=== PATIENT | female | born 2000 | race Caucasian/White ===

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

== ENCOUNTER 2024-06-23 17:04 | Emergency (ER) | payer MEDICAID, SELFPAY ==
[2024-06-23 17:05] VITALS: BP 116/85; PULSE 131; RESP 18; TEMP 36.1; O2SAT 97; BMI 24.0
[2024-06-23 17:43] VITALS: BP 115/86; PULSE 131; RESP 19; O2SAT 99
[2024-06-23 18:09] VITALS: BP 128/89; PULSE 122; RESP 19; O2SAT 99
--- NOTE | 2024-06-23 18:38 | MRI_ITS ---
STUDY: MRI BRAIN WITH AND WITHOUT CONTRAST REASON FOR EXAM: Female, 24 years old. Concern for brain mass with neurological deficit -- Sent by PCP for this TECHNIQUE: Standardized multiplanar fat and water weighted pulse sequences were obtained. IV 12CC CLARISCAN was administered for the contrast portion of the examination. COMPARISON: None. FINDINGS: Normal size of the ventricles and extra-axial spaces for the patient''s age. Normal white matter tracts of the supratentorial brain. Normal bilateral basal ganglia. Normal thalami. There is no extra-axial fluid accumulation. Normal flow voids within the major intracranial circulation suggesting patency by spin echo criteria. Normal venous enhancement. There is no enhancing intra-axial or extra-axial abnormality. Normal sella turcica, pituitary gland, infundibular stalk, optic chiasm and hypothalamus. Normal tectal plate and pineal gland. Normal midbrain, kolby and medulla. Normal cerebellum. Normal basal cisterns. Normal bilateral temporal bones. Normal bilateral internal auditory canals. No demonstrated orbital abnormality, within the constraints of a routine brain study. Normal visualized paranasal sinuses. Normal calvarium and skull base. Normal visualized soft tissue structures. Normal visualized upper cervical spine. MRI/Brain W/WO Contrast IMPRESSION: Normal unenhanced and enhanced MRI of the brain. Electronically Signed: Bharat Mo MD at 22:59 EDT ,
--- NOTE | 2024-06-23 18:43 | MRI_ITS ---
STUDY: MRI LUMBAR SPINE WITH AND WITHOUT CONTRAST REASON FOR EXAM: Female, 24 years old. weakness, decreased DTR, back pain TECHNIQUE: Standardized fat and water weighted pulse sequences were obtained in the sagittal and axial planes. IV 12CC CLARISCAN was administered for the contrast portion of the examination. COMPARISON: None FINDINGS: T12-L1: Normal endplates. Normal disc height, hydration and morphology. Normal bilateral facet joints. Normal central canal and bilateral lateral recesses. Normal bilateral intervertebral neural foramina. Normal lumbar lordosis. There is no substantial scoliosis. Normal conus medullaris that terminates at T12-L1 L1-2: Normal endplates. Normal disc height, hydration and morphology. Normal bilateral facet joints. Normal central canal and bilateral lateral recesses. Normal bilateral intervertebral neural foramina. L2-3: Normal endplates. Normal disc height, hydration and morphology. Normal bilateral facet joints. Normal central canal and bilateral lateral recesses. Normal bilateral intervertebral neural foramina. L3-4: Normal endplates. Normal disc height, hydration and morphology. Normal bilateral facet joints. Normal central canal and bilateral lateral recesses. Normal bilateral intervertebral neural foramina. L4-5: Normal endplates. Normal disc height, hydration and morphology. Normal bilateral facet joints. Normal central canal and bilateral lateral recesses. Normal bilateral intervertebral neural foramina. L5-S1: Normal endplates. Normal disc height, hydration and morphology. Normal bilateral facet joints. Normal central canal and bilateral lateral recesses. Normal bilateral intervertebral neural foramina. Normal visualized sacral ala. Normal visualized paraspinous soft tissue structures. MRI/Spine Lumbar W/WO Contrast IMPRESSION: Normal enhanced and unenhanced MR examination of the lumbar spine. Electronically Signed: Bharat Mo MD at 22:18 EDT Reading Location ID and State: [facility] / [place] Tel , Service support ,
--- NOTE | 2024-06-23 18:43 | MRI_ITS ---
STUDY: MRI THORACIC SPINE WITH AND WITHOUT CONTRAST REASON FOR EXAM: Female, 24 years old. weakness, decreased DTR, back pain TECHNIQUE: IV 12CC CLARISCAN was administered for the contrast portion of the examination. COMPARISON: None. FINDINGS: Normal kyphosis of the thoracic spine. There is no substantial scoliosis. T1-2, T2-3, T3-4, T4-5, T5-6, T6-7, T7-8, T8-9, T9-10, T10-11, T11-12: Normal endplates. Normal disc hydration, heights and morphology of the corresponding intervertebral discs. Normal central canal and intervertebral neural foramina at the corresponding levels. Normal visualized thoracic cord. Normal conus medullaris that terminates at T12-L1 The soft tissue structures are unremarkable. There is no enhancing abnormality. MRI/Spine Thoracic W/WO Contrast IMPRESSION: Normal unenhanced and enhanced MRI examination of the thoracic spine. Electronically Signed: Bharat Mo MD at 22:17 EDT ,
--- NOTE | 2024-06-23 18:43 | MRI_ITS ---
STUDY: MRI CERVICAL SPINE WITH AND WITHOUT CONTRAST REASON FOR EXAM: Female, 24 years old. weakness, decreased DTR, back pain TECHNIQUE: Standardized fat and water weighted pulse sequences were obtained in the sagittal and axial following administration of IV 12CC CLARISCAN. COMPARISON: None FINDINGS: Normal foramen magnum and brainstem-cervical cord junction. Normal craniovertebral junction. Normal anterior atlantoaxial articulation. Normal odontoid process. Normal cervical lordosis. Normal vertebral bodies and posterior osseous elements. C2-3: Normal endplates. Normal disc height, signal and morphology. Normal central canal and intervertebral neural foramina. C3-4: Normal endplates. Normal disc height, signal and morphology. Normal central canal and intervertebral neural foramina. C4-5: Normal endplates. Normal disc height, signal and morphology. Normal central canal and intervertebral neural foramina. C5-6: Normal endplates. Normal disc height, signal and morphology. Normal central canal and intervertebral neural foramina. C6-7: Normal endplates. Normal disc height, signal and morphology. Normal central canal and intervertebral neural foramina. C7-T1: Normal endplates. Normal disc height, signal and morphology. Normal central canal and intervertebral neural foramina. Normal cervical cord. Normal visualized soft tissue structures. MRI/Spine Cervical W/WO Contrast IMPRESSION: Normal unenhanced and enhanced MR examination of the cervical spine. Electronically Signed: Bharat Mo MD at 22:21 EDT ,
--- NOTE | 2024-06-23 18:48 | EKG12_ITS ---
Test Reason : DYSRHYTHMIA Blood Pressure : / mmHG Vent. Rate : 125 BPM Atrial Rate : 125 BPM P-R Int : 130 ms QRS Dur : 078 ms QT Int : 318 ms P-R-T Axes : 068 058 050 degrees QTc Int : 458 ms Sinus tachycardia Otherwise normal ECG Confirmed by DANISHA HANSEN, BRINDA ([id number]), supervising editor news reel MADY ALMONTE ([id number]) on 06/25/2024 1:05:38 PM Referred By: BOBBI Confirmed By:BRINDA RAMAN MD
[2024-06-23 19:00] VITALS: BP 134/97; PULSE 120; RESP 18; O2SAT 100
[2024-06-23 19:03] LABS: Absolute Lymphocyte Count 2.33 X10^3/uL (0.83-4.51); Absolute Neutrophil Count 7.3 X10^3/uL (2.0-7.7); Basophil# 0.04 X10^3/uL; Basophil% 0.4 % (0-1); Eosinophil# 0.01 X10^3/uL; Eosinophils% 0.1 % (0-5); Hematocrit 42.8 % (37-47); Hemoglobin 15.3 g/dL (12.0-15.0); Lymphocyte # 2.33 X10^3/ul (0.83-4.51); Lymphocyte % 22.3 % (19-41); Mean Corp Hgb Conc 35.7 g/dL (32-36); Mean Corpuscular Hgb 28.9 pg (27.0-32.0); Mean Corpuscular Volume 80.9 fL (81-99); Mean Platelet Vol. 10.2 fl (6.2-12.0); Monocyte# 0.75 X10^3/uL; Monocyte% 7.2 % (0-10); NRBC Flagged by Analyzer 0 % (0-5); Neutrophil # 7.27 X10^3/uL (2.7-7.7); Neutrophil % 69.5 % (47-70); Platelet Count 198 K/mm3 (150-450); RBC Distribution Width CV 12.3 % (11.6-14.6); RBC Distribution Width SD 35.8 fl (35.1-43.9); Red Blood Count 5.29 M/mm3 (4.2-5.4); White Blood Count 10.5 K/mm3 (4.4-11.0)
[2024-06-23] MEDS: Ondansetron 4 MG/2 ML Vial IV (19:09)
[2024-06-23] MEDS: Morphine 4 MG/ML Syringe IV ×2 (19:10→22:48)
[2024-06-23] MEDS: 0.9% Normal Saline (1000mL) 1,000 ML 999 ML IV (19:10)
[2024-06-23 19:15] LABS: Erythrocyte Sedimentation Rate 4 mm/hr (0-30)
[2024-06-23 19:26] LABS: AST(SGOT) 41 U/L (15-37); Alanine Aminotransfer ALT/SGPT 51 U/L (13-56); Albumin, Serum 3.4 g/dL (3.2-5.0); Alkaline Phosphatase 96 U/L (45-117); Anion Gap 11 (5-15); BUN 28 mg/dL (7-18); BUN/Creat Ratio 28.5 RATIO (10-20); CPK Total, Creatine Kinase 22 U/L (26-192); CRP < 2.90 mg/L (0.0-3.0); Calcium,Total 9.7 mg/dL (8.5-10.1); Chloride 100 mmol/L (98-107); Creatinine, Serum 0.98 mg/dL (0.55-1.02); EST Glomerular Filtration Rate 74 mL/min (>60); Est Glom Filt Rate - Afr Amer 89 mL/min (>60); Estimated Creatinine Clearance 73.22 ml/min; Globulin 3.5 g/dL (2.2-4.2); Glucose 105 mg/dL (74-106); Magnesium 2.2 mg/dL (1.6-2.6); Potassium 2.8 mmol/L (3.5-5.1); Protein, Total 6.9 g/dL (6.4-8.2); Sodium Level 136 mmol/L (136-145)
[2024-06-23 19:51] LABS: Lactic Acid 1.3 mmol/L (0.4-1.9)
--- NOTE | 2024-06-23 20:01 | EDS_ITS ---
HPI History of Present Illness Chief Complaint: General Illness Narrative Narrative: Chief complaint and HPI: Muscle weakness and pain. 24-year-old female with history of Lyme disease as a child, depression, anxiety presents from PCPs office for MRI brain. PCP called prior to arrival and spoke with another ER physician. Transfer was for MRI brain to rule out prolactinoma given out of breast and new onset seizure. Patient states last month she had 3 episodes of out of her left breast. She states this has since resolved. She states that she had a workup outpatient that revealed an unremarkable pelvic ultrasound as well as she believes an ultrasound of the breast. Patient states on 05/28 she started to develop diffuse muscle pain including her back. She states for the past week she has been having worsening weakness in all of her extremities. She states she is barely able to move and only gets around the house by her helping her. She states she does not know what is causing this. states on Saturday she had a new onset witnessed seizure. He states that it was tonic-clonic and that it lasted a couple seconds. He endorses a postictal phase. Patient has no history of seizures. Patient denies any fever, chills, headache, URI symptoms, shortness of breath, chest pain, abdominal pain, diarrhea, constipation, dysuria. Patient states she has been urinating well. She endorses decreased p.o. intake and states she has lost several pounds. She denies any recent travel. Denies any recent vaccinations. Patient states that she has been to multiple ERs for her pain and weakness and states that everyone discharges her home. She denies any imaging. Patient states that she was given Toradol IM prior to transfer to our ED Review of systems: See HPI Medications: As listed on the chart Allergies: As listed on the chart PFSH: Per chart Vital signs: As listed on the chart. Reviewed. Physical exam: Gen: A&O x4, uncomfortable secondary to pain Head: Normocephalic, atraumatic Eyes: No sclera icterus, conjunctiva clear, PERRL, EOMI ENT: Dry mucous membranes, no facial asymmetry Neck: Trachea midline, No JVD, tender to palpation diffusely, no bony step-offs, full range of motion of the neck CV: Tachycardic, regular rhythm, no murmurs, breast nontender -no discharge expressed Resp: Lungs CTA BL, no w/r/c GI: Abd soft, non-distended, non-tender, no r/r/g Rectal: Decreased rectal tone Musc: Strength +3/5 in upper and lower extremity, DTR +1/5, diffusely tender to palpation of all her muscles as well as her entire spine-no obvious signs of injury or infection Skin: Warm, dry, no rashes, Band-Aid over her buttocks where Toradol IM shot given Neuro: Alert, oriented x4, sensation intact, + Babinski on the left but negative on the right, patient unable to stand without 2 nurses supporting body weight Psych: Cooperative, flat affect, soft-spoken PFSH PFS Medical History (Updated 06/23/24 @ 18:59 by Minal Victor) Anxiety Depression Acute Lyme disease Home Medications ?Medication ?Instructions ?Recorded ?Last Taken ?Type escitalopram oxalate 20 mg tablet 20 mg PO QHS 06/23/24 Unknown History (Lexapro) topiramate 25 mg tablet (Topamax) 25 mg PO QHS 06/23/24 Unknown History Allergy/AdvReac Type Severity Reaction Status Date / Time No Known Allergies Allergy Verified 05/01/19 13:53 Social History (System 05/01/19 @ 13:53 by Katy Weiner) current occupational status: student current occupation: [employer] Smoking Status: Never smoker alcohol intake: never substance use type: does not use diet: gluten free and lactose free seatbelt use: always do you feel safe at home: Yes EXAM Physical Exam Const Vital Signs: 06/23/24 17:05 06/23/24 17:40 06/23/24 17:43 Temperature 97.0 F L Temperature Source Tympanic Pulse Rate 131 H 131 H Respiratory Rate 18 19 H Respiratory Effort Non-Labored Blood Pressure 116/85 H 115/86 H Blood Pressure Mean 95 95 Pulse Ox 97 99 Oxygen Delivery Method Room Air Room Air 06/23/24 18:09 06/23/24 19:00 06/23/24 22:42 Temperature Temperature Source Pulse Rate 122 H 120 H 116 H Respiratory Rate 19 H 18 19 H Respiratory Effort Blood Pressure 128/89 H 134/97 H 129/88 H Blood Pressure Mean 102 109 101 Pulse Ox 99 100 98 Oxygen Delivery Method Room Air Room Air 06/23/24 22:53 Temperature Temperature Source Pulse Rate 113 H Respiratory Rate 25 H Respiratory Effort Blood Pressure 129/88 H Blood Pressure Mean 101 Pulse Ox 96 Oxygen Delivery Method Room Air MDM MDM MDM Narrative Medical decision making narrative: 24-year-old female with history of Lyme disease, depression, anxiety presents to the ED by PCPs office for MRI brain to rule out prolactinoma. Patient has multiple complaints including seizure, weakness, myalgias. See physical exam findings. I did Clinisync patient and was unable to find any information. Differential diagnosis includes but is not limited to infection, transverse myelitis although patient has no sensory deficits, tumor, spinal cord compressi on, rhabdomyolysis, other neurological pathology, intoxication. On presentation patient is tachycardic but otherwise vitals are stable. NS bolus, morphine, Zofran ordered. Given patient's physical exam and complaints stat MRI brain, cervical, thoracic, lumbar spine performed. Laboratory workup ordered including urine. CBC without leukocytosis. Patient has hemoconcentration with a hemoglobin of 15.3. Platelets unremarkable. CMP shows hypokalemia of 2.8. IV potassium ordered. No SHILPA. Lactic acid unremarkable. Magnesium level unremarkable. AST mildly elevated at 41 otherwise no transaminitis. CPK 22. CRP unremarkable. UA positive for proteins and ketones. This is consistent with patient's physical exam of dehydration. Fluids running. Patient has blood and bilirubin in her urine. Leukoesterases 25. WBC 5-10. Dirty sample with squamous epithelial of 10-25. Patient denying any dysuria or UTI type symptoms. Not a clear UTI given dirty specimen. Will send for culture. Hold off on antibiotics for now. negative. Urine positive for opiates, benzos, cannabinoid. Patient opiates are likely positive from the morphine I gave her however she did not receive any benzos. When I brought this up to the patient and she denies personal use of benzos and states that may be the shot she got by the PCP was not Toradol and instead of benzo. Blood cultures obtained. MRI of the brain, cervical spine, thoracic spine, lumbar spine unremarkable. Patient was updated of all her results and findings. She confirmed understanding. No clear etiology for patient's symptoms at this time. Her heart rate has improved with pain medication and fluids. Physical exam findings remain the same. Neurology is not available at our hospital. Patient will need further manag ement and workup from a neurological standpoint. She confirmed understanding the plan. Patient may ultimately end up needing lumbar puncture but I do not think this is emergent at this time. Patient was discussed with [facility] transfer center and awaiting call. Call was also placed out with and transfer center called back. I spoke with the hospitalist at [facility] Dr. Boss who accepted admission and transfer. Patient and family updated about the results and confirmed understanding the plan. Patient awaiting transfer. Patient still currently getting potassium. She has a repeat potassium ordered in case she does not transfer before it needs to be repeated. Maintenance fluid added. EKG: Interpreted by me/EM physician: EKG shows sinus tachycardia with heart rate of 125, no acute ischemic changes 30 minutes of critical care time utilized in managing the patient. This involves assessing the patient multiple times for her neurological status, multiple discussions with family, discussions with transfer line and other physician. Lab Data Labs: Laboratory Results - last 24 hr 06/23/24 06/23/24 18:29 23:25 WBC 10.5 RBC 5.29 Hgb 15.3 H Hct 42.8 MCV 80.9 L MCH 28.9 MCHC 35.7 RDW Std Deviation 35.8 RDW Coeff of Yash 12.3 Plt Count 198 MPV 10.2 Immature Gran % (Auto) 0.500 Neut % (Auto) 69.5 Lymph % (Auto) 22.3 [place] % (Auto) 7.2 Eos % (Auto) 0.1 Baso % (Auto) 0.4 Absolute Neuts (auto) 7.3 Absolute Lymphs (auto) 2.33 Nucleated RBC % 0 ESR 4 Sodium 136 Potassium 2.8 L Chloride 100 Carbon Dioxide 25.0 Anion Gap 11 BUN 28 H Creatinine 0.98 Estim Creat Clear Calc 73.22 Est GFR (MDRD) Af Amer 89 Est GFR (MDRD) Non-Af 74 BUN/Creatinine Ratio 28.5 H Glucose 105 Lactic Acid 1.3 Calcium 9.7 Magnesium 2.2 Total Bilirubin 0.80 AST 41 H ALT 51 Alkaline Phosphatase 96 Total Creatine Kinase 22 L C-React Prot Ext Range < 2.90 Total Protein 6.9 Albumin 3.4 Globulin 3.5 Albumin/Globulin Ratio 1.0 Ur Drug Screen Comment Radiography Diagnostic Testing: Clinical Impression(s) from Imaging Studies Brain MRI 06/23/24 18:38 IMPRESSION: Normal unenhanced and enhanced MRI of the brain. Electronically Signed: Bharat Mo MD at 22:59 EDT , Cervical Spine MRI 06/23/24 18:43 IMPRESSION: Normal unenhanced and enhanced MR examination of the cervical spine. Electronically Signed: Bharat Mo MD at 22:21 EDT , Lumbar Spine MRI 06/23/24 18:43 IMPRESSION: Normal enhanced and unenhanced MR examination of the lumbar spine. Electronically Signed: Bharat Mo MD at 22:18 EDT , Thoracic Spine MRI 06/23/24 18:43 IMPRESSION: Normal unenhanced and enhanced MRI examination of the thoracic spine. Electronically Signed: Bharat Mo MD at 22:17 EDT , Discharge Plan Triage Chief Complaint: General Illness ED Provider: Arnulfo Chapman Dx/Rx/DC Orders Prescriptions: No Action escitalopram oxalate [Lexapro] 20 mg tablet 20 mg PO QHS topiramate [Topamax] 25 mg tablet 25 mg PO QHS Primary Care Provider: Care Physician,No Primary Referrals: Care Physician,No Primary [Primary Care Provider] - Print Language: Occitan
[2024-06-23] MEDS: Potassium Chloride 10mEq/100mL 10 MEQ/100 ML IV.SOLN. 100 MEQ IV BOLUS ×2 (22:25→23:43)
[2024-06-23 22:42] VITALS: BP 129/88; PULSE 116; RESP 19; O2SAT 98
[2024-06-23 22:53] VITALS: BP 129/88; PULSE 113; RESP 25; O2SAT 96
[2024-06-23 23:35] LABS: Glucose, Dipstick Normal (Normal); Leukocyte Esterase-Dipstick 25 /ul (Negative); Nitrite-Dipstick Negative (Negative); Occult Blood-Urine 10 /ul (Negative); Protein-Dipstick 30 mg/dl (Negative); Urine Clarity Sl. Cloudy (Clear); Urine Urobilinogen 12 mg/dl (Normal)
[2024-06-23 23:39] LABS: Internal QC Validated? YES +Cl - CLEAR BKGD; Pregnancy, Urine Negative Negative
[2024-06-23 23:56] LABS: Color, Urine SEE COMMENT BELOW (Yellow); Urine Bilirubin Dipstick 6 mg/dL (Negative)
[2024-06-23 23:57] LABS: Bacteria 1+ /hpf (None Seen); Fine Granular Cast- Urine 5-10 SEEN /lpf (0-5); Hyaline Cast 10-25 SEEN /lpf (0-5); Ketone-Dipstick 150 mg/dl (Negative); Mucous, Urine 2+ /hpf (<or=2+); Red Blood Cells-Urine 5-10 SEEN /hpf (0-5); Squamous Epithelial Cells - UA 10-25 SEEN /hpf (5-10); White Blood Cells 5-10 SEEN /hpf (0-5)
[2024-06-24] VITALS (7 sets, daily range): BP systolic 124–133; BP diastolic 92–103; PULSE 109–117; RESP 16–20; TEMP 36.2; O2SAT 94–100
[2024-06-24] LABS: Vista UDS pH Range 6
[2024-06-24 00:01] LABS: Amphetamine Urine VISTA NEGATIVE (<1000 ng/mL); Barbiturate Urine VISTA NEGATIVE (< 200 ng/mL); Benzodiazepine Urine VISTA POSITIVE (< 200 ng/mL); Cocaine Urine VISTA NEGATIVE (< 300 ng/mL); Ecstacy Urine VISTA NEGATIVE (< 500 ng/mL); Methadone Urine VISTA NEGATIVE (< 300 ng/mL); PCP Urine VISTA NEGATIVE (< 25 ng/mL); THC Urine VISTA POSITIVE (< 50 ng/mL)
[2024-06-24] MEDS: Potassium Chloride 10mEq/100mL 10 MEQ/100 ML IV.SOLN. 100 MEQ IV BOLUS ×2 (00:46→01:52)
[2024-06-24] MEDS: 0.9% Normal Saline (1000mL) 1,000 ML 100 ML IV (00:49)
[2024-06-24] MEDS: oxyCODONE 5 MG Tablet PO ×2 (03:05→06:51)
[2024-06-24 05:53] LABS: Potassium 3.1 mmol/L (3.5-5.1)
== END 2024-06-24 07:09 | disposition short-term general hospital (02) ==
LOC: ED 19:33
PROVIDERS: Emergency Provider Surgery; Visit Provider Surgery
DX: M62.81 Muscle weakness (generalized) (principal); R56.9 Unspecified convulsions; E87.6 Hypokalemia; F41.9 Anxiety disorder, unspecified; A69.20 Lyme disease, unspecified; F32.9 Major depressive disorder, single episode, unspecified
CPT/HCPCS: 70553; 72156; 72157; 72158; 80053; 80307; 81001; 81025; 82550; 83605; 83735; 84132; 85025; 85652; 86140; 87040; 87086; 87088; 93005; 96361; 96374; 96375; 96376; 99285; A9575; J7030; A4216; J2405

== ENCOUNTER → 2024-07-27 | Outpatient (REF) | payer MEDICAID, SELFPAY ==
[2024-07-27 09:39] LABS: Absolute Lymphocyte Count 3.18 X10^3/uL (0.83-4.51); Absolute Neutrophil Count 3.8 X10^3/uL (2.0-7.7); Basophil# 0.04 X10^3/uL; Basophil% 0.5 % (0-1); Eosinophils% 1.3 % (0-5); Hemoglobin 7.7 g/dL (12.0-15.0); Lymphocyte # 3.18 X10^3/ul (0.83-4.51); Mean Corp Hgb Conc 32.1 g/dL (32-36); Mean Corpuscular Hgb 31.6 pg (27.0-32.0); Mean Corpuscular Volume 98.4 fL (81-99); Mean Platelet Vol. 10.4 fl (6.2-12.0); Monocyte# 0.52 X10^3/uL; Monocyte% 6.7 % (0-10); NRBC Flagged by Analyzer 0 % (0-5); Neutrophil # 3.78 X10^3/uL (2.7-7.7); Neutrophil % 48.7 % (47-70); Platelet Count 334 K/mm3 (150-450); RBC Distribution Width CV 16.1 % (11.6-14.6); RBC Distribution Width SD 58.3 fl (35.1-43.9); Red Blood Count 2.44 M/mm3 (4.2-5.4); White Blood Count 7.8 K/mm3 (4.4-11.0)
[2024-07-27 10:01] LABS: Vitamin B12 439 pg/mL (211-911); Vitamin D,25 Hydroxy 25.9 ng/mL
[2024-07-27 10:28] LABS: ALB/GLOB Ratio 0.6 RATIO (0.9-2.4); AST(SGOT) 28 U/L (15-37); Alanine Aminotransfer ALT/SGPT 29 U/L (13-56); Albumin, Serum 2.1 g/dL (3.2-5.0); Alkaline Phosphatase 103 U/L (45-117); Anion Gap 4 (5-15); BUN 21 mg/dL (7-18); BUN/Creat Ratio 31.4 RATIO (10-20); Calcium,Total 9.7 mg/dL (8.5-10.1); Chloride 108 mmol/L (98-107); Cholesterol 208 mg/dL (200); Creatinine, Serum 0.67 mg/dL (0.55-1.02); EST Glomerular Filtration Rate 115 mL/min (>60); Est Glom Filt Rate - Afr Amer 139 mL/min (>60); Globulin 3.6 g/dL (2.2-4.2); Glucose 83 mg/dL (74-106); High Density Lipoprotein 42 mg/dL; Magnesium 1.8 mg/dL (1.6-2.6); Potassium 3.8 mmol/L (3.5-5.1); Protein, Total 5.7 g/dL (6.4-8.2); Sodium Level 144 mmol/L (136-145); Triglycerides 219 mg/dL; Very Low Density Lipoprotein 44 mg/dL (5-40)
== END | disposition home or self-care (01) ==
LOC: OLS.SW 04:00
PROVIDERS: Referring Provider Internal Medicine; Visit Provider Internal Medicine
DX: Z74.09 Other reduced mobility (principal); R53.83 Other fatigue; R50.9 Fever, unspecified
CPT/HCPCS: 36415; 80053; 80061; 82306; 82607; 83735; 84443; 85025

== ENCOUNTER → 2024-07-30 05:00 | Outpatient (REF) | payer MEDICAID, SELFPAY ==
[2024-07-30 08:21] LABS: Hematocrit 27.5 % (37-47); Hemoglobin 8.7 g/dL (12.0-15.0); Mean Corp Hgb Conc 31.6 g/dL (32-36); Mean Corpuscular Hgb 30.9 pg (27.0-32.0); Mean Corpuscular Volume 97.5 fL (81-99); Mean Platelet Vol. 10.7 fl (6.2-12.0); Platelet Count 230 K/mm3 (150-450); RBC Distribution Width CV 15.2 % (11.6-14.6); RBC Distribution Width SD 54.1 fl (35.1-43.9); Red Blood Count 2.82 M/mm3 (4.2-5.4); White Blood Count 6.2 K/mm3 (4.4-11.0)
== END ==
LOC: OLS.SW 05:00
PROVIDERS: Visit Provider Internal Medicine
DX: G61.81 Chronic inflammatory demyelinating polyneuritis (principal); A69.20 Lyme disease, unspecified
CPT/HCPCS: 36415; 85027

== ENCOUNTER → 2024-08-03 06:40 | Outpatient (REF) | payer MEDICAID, SELFPAY ==
[2024-08-03 08:19] LABS: Absolute Neutrophil Count 2.7 X10^3/uL (2.0-7.7); Basophil# 0.01 X10^3/uL; Basophil% 0.2 % (0-1); Eosinophil# 0.09 X10^3/uL; Eosinophils% 1.7 % (0-5); Hematocrit 27.8 % (37-47); Hemoglobin 8.9 g/dL (12.0-15.0); Lymphocyte % 42.2 % (19-41); Mean Corpuscular Hgb 30.9 pg (27.0-32.0); Mean Corpuscular Volume 96.5 fL (81-99); Monocyte# 0.33 X10^3/uL; Monocyte% 6.1 % (0-10); NRBC Flagged by Analyzer 0 % (0-5); Neutrophil # 2.68 X10^3/uL (2.7-7.7); Neutrophil % 49.1 % (47-70); Platelet Count 203 K/mm3 (150-450); RBC Distribution Width CV 14.2 % (11.6-14.6); RBC Distribution Width SD 50.3 fl (35.1-43.9); Red Blood Count 2.88 M/mm3 (4.2-5.4); White Blood Count 5.5 K/mm3 (4.4-11.0)
[2024-08-03 09:04] LABS: ALB/GLOB Ratio 0.6 RATIO (0.9-2.4); AST(SGOT) 23 U/L (15-37); Alanine Aminotransfer ALT/SGPT 21 U/L (13-56); Albumin, Serum 2.2 g/dL (3.2-5.0); Alkaline Phosphatase 70 U/L (45-117); Anion Gap 7 (5-15); BUN 21 mg/dL (7-18); BUN/Creat Ratio 30.9 RATIO (10-20); Calcium,Total 9.8 mg/dL (8.5-10.1); Chloride 110 mmol/L (98-107); Creatinine, Serum 0.68 mg/dL (0.55-1.02); EST Glomerular Filtration Rate 113 mL/min (>60); Est Glom Filt Rate - Afr Amer 137 mL/min (>60); Globulin 3.7 g/dL (2.2-4.2); Glucose 99 mg/dL (74-106); Magnesium 1.5 mg/dL (1.6-2.6); Phosphorus 5.9 mg/dL (2.5-4.9); Protein, Total 5.9 g/dL (6.4-8.2); Sodium Level 143 mmol/L (136-145)
== END ==
LOC: OLS.SW 06:40
PROVIDERS: Visit Provider Internal Medicine
DX: R07.89 Other chest pain (principal); G61.81 Chronic inflammatory demyelinating polyneuritis
CPT/HCPCS: 36415; 80053; 83735; 84100; 85025

== ENCOUNTER → 2024-08-05 | Outpatient (REF) | payer MEDICAID, SELFPAY ==
[2024-08-05 07:54] LABS: PTHIN 10.9 pg/mL (18.4-80.1)
== END | disposition home or self-care (01) ==
LOC: OLS.SW 05:00
PROVIDERS: Visit Provider Internal Medicine
DX: R00.0 Tachycardia, unspecified (principal); R53.81 Other malaise; M62.50 Muscle wasting and atrophy, not elsewhere classified, unspecified site
CPT/HCPCS: 36415; 83970